=== PATIENT | female | born 1990 | race Asian ===

== ENCOUNTER 2019-02-09 00:15 | Emergency (ER) | payer SELFPAY ==
[~2019-02-09] VITALS: Ht 147 cm; Wt 54.0 kg
[2019-02-09] MEDS ORDERED: LIDOCAINE 2% VISCOUS 15 ML UDC PO ONE (00:45)
[2019-02-09] MEDS ORDERED: ANTACID SUSP 30 ML UDC (MYLANTA) PO ONE (00:45)
[2019-02-09] MEDS ORDERED: ONDANSETRON 4 MG (ZOFRAN) ORAL DISSOLVE TAB SL ONE (00:45)
[2019-02-09] MEDS ORDERED: fentaNYL INJECTION 100 MCG/2 ML AMP IVP ONE ×2 (01:45→02:30)
[2019-02-09 01:53] LABS: BILIRUBIN,URINE NEGATIVE (NEGATIVE); CLARITY,URINE CLEAR; COLOR,URINE YELLOW; GLUCOSE, URINE (UA) 4+ (NEGATIVE); KETONES,URINE NEGATIVE (NEGATIVE); LEUKOCYTE ESTERASE ,URINE NEGATIVE (NEGATIVE); NITRITE,URINE NEGATIVE (NEGATIVE); PH,URINE 6 (5-9); PROTEIN,URINE 1+ (NEGATIVE); UROBILINOGEN,URINE NORMAL (NORMAL)
[2019-02-09 02:01] LABS: BACTERIA,URINE TRACE /HPF; RBC,URINE RARE /HPF; SQUAMOUS EPITHELIAL CELL,UR 0-2 /HPF
[2019-02-09 02:04] LABS: BASOPHILS # (AUTO) 0.1 10^3/uL (0.0-0.1); BASOPHILS % (AUTO) 1 % (0-10); EOSINOPHILS # (AUTO) 0.1 10^3/uL (0.0-0.3); EOSINOPHILS % (AUTO) 1 % (0-10); HEMATOCRIT 40 % (35-52); HEMOGLOBIN 14.7 G/DL (11.5-16.0); LYMPHOCYTES # (AUTO) 2.6 X 10^3 (1.0-4.0); LYMPHOCYTES % (AUTO) 35 % (12-44); MEAN CORPUSCULAR HEMOGLOBIN 30 PG (25-34); MEAN CORPUSCULAR HGB CONC 37 G/DL (32-36); MEAN CORPUSCULAR VOLUME 81 FL (80-99); MEAN PLATELET VOLUME 9.6 FL (7.4-10.4); MONOCYTES # (AUTO) 0.5 X 10^3 (0.0-1.0); MONOCYTES % (AUTO) 7 % (0-12); NEUTROPHILS # (AUTO) 4.3 X 10^3 (1.8-7.8); NEUTROPHILS % (AUTO) 56 % (42-75); PLATELET COUNT 320 10^3/uL (130-400); RED CELL DISTRIBUTION WIDTH 12.2 % (10.0-14.5); WHITE BLOOD COUNT 7.6 10^3/uL (4.3-11.0)
[2019-02-09 02:28] LABS: ALANINE AMINOTRANSFERASE 18 U/L (0-55); ALBUMIN 4.2 GM/DL (3.2-4.5); ALKALINE PHOSPHATASE 78 U/L (40-136); BILIRUBIN,TOTAL 0.3 MG/DL (0.1-1.0); BUN/CREATININE RATIO 16; CALCIUM 9.5 MG/DL (8.5-10.1); CARBON DIOXIDE 24 MMOL/L (21-32); CHLORIDE 99 MMOL/L (98-107); CREATININE SERUM 1.01 MG/DL (0.60-1.30); GFR ESTIMATED > 60; LIPASE 59 U/L (8-78); POTASSIUM 3.7 MMOL/L (3.6-5.0); SODIUM 134 MMOL/L (135-145); TOTAL PROTEIN 8.1 GM/DL (6.4-8.2)
[2019-02-09 02:39] LABS: GLUCOSE 438 MG/DL (70-105)
[2019-02-09] MEDS ORDERED: inSUlin (REGULAR) HUMAN 1 UNIT/0.01 ML (CHARGE PER UNIT) SC ONE (02:45)
--- NOTE | 2019-02-09 03:16 | ED Abdominal Pain ---
General Chief Complaint: Abdominal/GI Problems Stated Complaint: UPPER LEFT ABD PAIN Nursing Triage Note: AMBULATORY TO ED ROOM 5 WITH C/O OF LUQ ABD PAIN THAT STARTED [employer]H [employer]. STATES SHE RECENTLY MOVED TO AREA, BUT IN DECEMBER SHE WENT TO ER IN [facility] FOR RUQ PAIN AND WAS TOLD SHE HAD GALLSTONES. HAS NAUSEA, BUT NO VOMITING OR DIARRHEA. Sepsis Screen: No Definite Risk Source of Information: Patient Exam Limitations: No Limitations History of Present Illness Date Seen by Provider: Feb 09, 2019 Time Seen by Provider: 00:24 Initial Comments This 28-year-old young lady presents to the emergency room with complaints of left upper quadrant pain that started about 2 hours prior to arrival. She had a similar pain in the right upper quadrant in December for which she went to the emergency room when living in [facility]. She reports having gallstones identified at that time. She did not follow-up because she moved to this area. She also has diabetes and has not been taking any medications for her diabetes for about a month. She denies any vomiting, constipation or diarrhea but does have nausea. She is afebrile. She denies any urinary symptoms. She reports he r pain is 8/10. Allergies and Home Medications Allergies Coded Allergies: No Known Drug Allergies (Unverified , 02/09/19) Home Medications Metformin HCl 1,000 Mg Tablet, 1,000 MG PO BID Prescribed by: ZENON HOANG on 02/09/19 0438 Patient Home Medication List Home Medication List Reviewed: Yes Review of Systems Review of Systems Constitutional: no symptoms reported EENTM: No Symptoms Reported Respiratory: No Symptoms Reported Cardiovascular: No Symptoms Reported Gastrointestinal: See HPI Genitourinary: No Symptoms Reported Musculoskeletal: no symptoms reported Skin: no symptoms reported Psychiatric/Neurological: No Symptoms Reported Endocrine: No Symptoms Reported Hematologic/Lymphatic: No Symptoms Reported Past Ljciuss-Bntapd-Xfhvng Hx Past Med/Social Hx: Reviewed Nursing Past Med/Soc Hx Patient Social History Alcohol Use: Denies Use Recreational Drug Use: No Smoking Status: Never a Smoker Recent Foreign Travel: No Contact w/Someone Who Travel: No Recent Infectious Disease Expo: No Recent Hopitalizations: No Physical Abuse: No Sexual Abuse: No Mistreated: No Fear: No Seasonal Allergies Seasonal Allergies: No Past Medical History Surgeries: Yes Section Respiratory: No Cardiac: No Neurological: No Genitourinary: No Gastrointestinal: No Musculoskeletal: No Endocrine: Yes Diabetes, Non-Insulin dep HEENT: No Cancer: No Psychosocial: No Integumentary: No Blood Disorders: No Adverse Reaction/Blood Tranf: No Physical Exam Vital Signs Vital Signs - First Documented 02/09/19 02/09/19 00:27 04:50 Temp 36.9 Pulse 96 Resp 18 B/P (MAP) 152/99 (116) Pulse Ox 98 O2 Delivery Room Air Capillary Refill : Less Than 3 Seconds Height/Weight/BMI Height: '" Weight: lbs. oz. kg; 24.00 BMI Method: General Appearance: WD/WN, no apparent distress HEENT: PERRL/EOMI, normal ENT inspection Neck: normal inspection Respiratory: lungs clear, normal breath sounds, no respiratory distress Cardiovascular: regular rate, rhythm, no edema, no murmur Gastrointestinal: normal bowel sounds, soft, tenderness (left upper quadrant and epigastrium) Extremities: normal inspection, no pedal edema Neurologic/Psychiatric: nanotechnician II-XII nml as tested, no motor/sensory deficits, alert, normal mood/affect, oriented x 3 Skin: normal color, warm/dry Progress/Results/Core Measures Results/Orders Lab Results Laboratory Tests Test 02/09/19 00:23 02/09/19 01:55 02/09/19 03:22 Range/Units Urine Color YELLOW Urine Clarity CLEAR Urine pH 6 5-9 Urine Specific [place] 1.010 L 1.016-1.022 Urine Protein 1+ H NEGATIVE Urine Glucose (UA) 4+ H NEGATIVE Urine Ketones NEGATIVE NEGATIVE Urine Nitrite NEGATIVE NEGATIVE Urine Bilirubin NEGATIVE NEGATIVE Urine Urobilinogen NORMAL NORMAL MG/DL Urine Leukocyte Esterase NEGATIVE NEGATIVE Urine RBC (Auto) 2+ H NEGATIVE Urine RBC RARE /HPF Urine WBC NONE /HPF Urine Squamous Epithelial Cells 0-2 /HPF Urine Crystals NONE /LPF Urine Bacteria TRACE /HPF Urine Casts NONE /LPF Urine Mucus SMALL H /LPF Urine Culture Indicated NO White Blood Count 7.6 4.3-11.0 10^3/uL Red Blood Count 4.89 4.35-5.85 10^6/uL Hemoglobin 14.7 11.5-16.0 G/DL Hematocrit 40 35-52 % Mean Corpuscular Volume 81 80-99 FL Mean Corpuscular Hemoglobin 30 25-34 PG Mean Corpuscular Hemoglobin Concent 37 H 32-36 G/DL Red Cell Distribution Width 12.2 10.0-14.5 % Platelet Count 320 130-400 10^3/uL Mean Platelet Volume 9.6 7.4-10.4 FL Neutrophils (%) (Auto) 56 42-75 % Lymphocytes (%) (Auto) 35 12-44 % Monocytes (%) (Auto) 7 0-12 % Eosinophils (%) (Auto) 1 0-10 % Basophils (%) (Auto) 1 0-10 % Neutrophils # (Auto) 4.3 1.8-7.8 X 10^3 Lymphocytes # (Auto) 2.6 1.0-4.0 X 10^3 Monocytes # (Auto) 0.5 0.0-1.0 X 10^3 Eosinophils # (Auto) 0.1 0.0-0.3 10^3/uL Basophils # (Auto) 0.1 0.0-0.1 10^3/uL Sodium Level 134 L 135-145 MMOL/L Potassium Level 3.7 3.6-5.0 MMOL/L Chloride Level 99 98-107 MMOL/L Carbon Dioxide Level 24 21-32 MMOL/L Anion Gap 11 5-14 MMOL/L Blood Urea Nitrogen 16 7-18 MG/DL Creatinine 1.01 0.60-1.30 MG/DL Estimat Glomerular Filtration Rate > 60 BUN/Creatinine Ratio 16 Glucose Level 438 *H 70-105 MG/DL Calcium Level 9.5 8.5-10.1 MG/DL Corrected Calcium 9.3 8.5-10.1 MG/DL Total Bilirubin 0.3 0.1-1.0 MG/DL Aspartate Amino Transf (AST/SGOT) 13 5-34 U/L Alanine Aminotransferase (ALT/SGPT) 18 0-55 U/L Alkaline Phosphatase 78 40-136 U/L Total Protein 8.1 6.4-8.2 GM/DL Albumin 4.2 3.2-4.5 GM/DL Lipase 59 8-78 U/L Serum Test, Qualitative NEGATIVE NEGATIVE Glucometer 388 H 70-110 MG/DL My Orders Orders - ZENON BLAKE MD Ondansetron Oral Dissolve Tab (Zofran (02/09/19 00:45) Lidocaine 2% Viscous 15 Ml (Xylocaine Vi (02/09/19 00:45) Antacid Suspension (Mylanta Suspension (10/4/19 00:45) Cbc With Automated Diff (02/09/19 01:36) Comprehensive Metabolic Panel (02/09/19 01:36) Hcg,Qualitative Serum (02/09/19 01:36) Lipase (02/09/19 01:36) Ua Culture If Indicated (02/09/19 01:36) Ed Iv/Invasive Line Start (02/09/19 01:36) Fentanyl Injection (Sublimaze Injection (02/09/19 01:45) Fentanyl Injection (Sublimaze Injection (02/09/19 02:30) Insulin (Regular) Human (Humulin R (Per (02/09/19 02:45) Chest Pa/Lat (2 View) (02/09/19 02:53) Abdomen, Flat & Upright/Decub (02/09/19 02:53) Accucheck Stat ONCE (02/09/19 02:56) Ketorolac Injection (Toradol Injection) (02/09/19 03:30) Metformin Tablet (Glucophage Tablet) (02/09/19 04:45) Medications Given in ED Current Medications Medications Dose Ordered Sig/Gerardo Route Start Time Stop Time Status Last Admin Dose Admin Al Hydrox/Mg Hydrox/Simethicone 30 ml ONCE ONCE PO 02/09/19 00:45 02/09/19 00:46 DC 02/09/19 01:20 30 ML Fentanyl Citrate 50 mcg ONCE ONCE IVP 02/09/19 01:45 02/09/19 01:46 DC 02/09/19 01:57 50 MCG Fentanyl Citrate 50 mcg ONCE ONCE IVP 02/09/19 02:30 02/09/19 02:31 DC 02/09/19 02:33 50 MCG Insulin Human Regular 10 unit ONCE ONCE SC 02/09/19 02:45 02/09/19 02:46 DC 02/09/19 02:48 10 UNIT Ketorolac Tromethamine 15 mg ONCE ONCE IVP 02/09/19 03:30 02/09/19 03:31 DC 02/09/19 03:37 15 MG Lidocaine HCl 15 ml ONCE ONCE PO 02/09/19 00:45 02/09/19 00:46 DC 02/09/19 01:20 15 ML Metformin HCl 1,000 mg ONCE ONCE PO 02/09/19 04:45 02/09/19 04:46 DC 02/09/19 04:48 1,000 MG Ondansetron HCl 8 mg ONCE ONCE SL 02/09/19 00:45 02/09/19 00:46 DC 02/09/19 00:45 8 MG Vital Signs/I&O 02/09/19 02/09/19 00:27 04:50 Temp 36.9 36.9 Pulse 96 89 Resp 18 18 B/P (MAP) 152/99 (116) 100/76 (116) Pulse Ox 98 O2 Delivery Room Air Blood Pressure Mean: 116 Progress Progress Note : Progress Note Patient was given Zofran and a GI cocktail without any improvement in pain. Workup was then pursued. Workup was essentially unremarkable. She was given 2 doses of fentanyl for further pain control which did not help her much. However, Toradol did help her. Hyperglycemia was treated with 10 units of regular insulin subcutaneously. She was still hyperglycemic. She was started back on treatment of her diabetes with a dose of metformin. Diagnostic Imaging Diagonstic Imaging: Xray Plain Films/CT/US/NM/MRI: chest Comments Two-view chest x-ray viewed by me. Report not yet available. No acute abnormalities appreciated. Diagonstic Imaging: Xray Plain Films/CT/US/NM/MRI: abdomen Comments KUB and upright abdominal film viewed by me. Report not yet available. No acute abnormality appreciated. Departure Impression Primary Impression: Left upper quadrant pain Additional Impressions: Hyperglycemia Poorly controlled diabetes mellitus Disposition: HOME, SELF-CARE Condition: Improved Departure-Patient Inst. Decision time for Depature: 04:25 Referrals: NO,LOCAL PHYSICIAN (PCP/Family) Primary Care Physician Patient Instructions: Acute Abdomen (Belly Pain), Adult (DC) Add. Discharge Instructions: Start with a clear liquid diet. Gradually advance your diet with small quantiti es of bland food as tolerated. Use an antacid medication such as Pepcid (famotidine) 20 mg twice daily or omeprazole 20 mg daily. Avoid the following that may irritate your stomach: Eating large meals, eating close to bedtime, caffeine, carbonation, citrus fruits and juices, tomato products, alcohol, tobacco, chocolate, spicy foods, NSAID medications such as ibuprofen or naproxen, mints, fatty or greasy foods, or anything else you know irritate your stomach. Additionally, eat a low carbohydrate diet. Follow-up with a primary care provider soon as possible and restart metformin. Check your blood sugars fasting in the morning and 2 hours after meals to monitor your progress in reducing blood sugars. You may take ibuprofen and/or Tylenol for pain. Take ibuprofen with food or milk to avoid stomach irritation. All discharge instructions reviewed with patient and/or family. Voiced und erstanding. Scripts Metformin HCl (Metformin HCl) 1,000 Mg Tablet 1000 MG PO BID, #60 TAB Prov: ZENON BLAKE MD 02/09/19 ZENON BLAKE MD Feb 09, 2019 03:16
[2019-02-09] MEDS ORDERED: KETOROLAC 30 MG/ML VIAL IVP ONE (03:30)
[2019-02-09] MEDS ORDERED: METF-399 PO (04:33)
[2019-02-09] MEDS ORDERED: metFORMIN 500 MG (GLUCOPHAGE) TAB PO ONE (04:45)
[2019-02-09 04:50] VITALS: BP 100/76
--- NOTE | 2019-02-09 05:29 | Diagnostic Imaging Report ---
INDICATION: Left upper quadrant abdominal pain. COMPARISON: None FINDINGS: 2 supine radiographic views of the abdomen were obtained and demonstrate nondistended loops of small bowel. There is no large collection of free peritoneal air. Moderate air and stool are seen scattered throughout the colon. There is probable cholelithiasis. No unexpected radiopaque foreign bodies are seen. Bony structures show no gross acute abnormalities. IMPRESSION: 1. Nonobstructed small bowel gas pattern. 2. Moderate colonic air and stool. Please correlate for constipation 3. Probable cholelithiasis. Dictated by: Dictated on workstation # [id number]
--- NOTE | 2019-02-09 05:31 | Diagnostic Imaging Report ---
INDICATION: Left upper quadrant abdominal pain. COMPARISON: None FINDINGS: Frontal and lateral views of the chest demonstrate normal heart size and pulmonary vascularity. The lungs are clear. There are no signs of infiltrate, pleural effusions or pneumothoraces. The visualized osseous structures show no acute abnormalities. IMPRESSION: 1. No acute process. No signs of infiltrates, effusions or pneumothoraces. Dictated by: Dictated on workstation # [id number]
== END 2019-02-09 04:52 | disposition home or self-care (01) ==
LOC: ER 00:18
DX: R10.12 Left upper quadrant pain (principal); E11.65 Type 2 diabetes mellitus with hyperglycemia; Z79.84 Long term (current) use of oral hypoglycemic drugs
CPT/HCPCS: 36415; 71046; 74019; 80053; 81000; 82962; 83690; 84703; 85025